=== PATIENT | female | born 1965 | race Caucasian/White ===

== ENCOUNTER 2018-06-12 21:32 | Inpatient (IN) | payer BC, OTHER ==
[~2018-06-12] VITALS: Ht 157.5 cm; Wt 80.9 kg
[~2018-06-12 21:32] MED LIST: DAILY VALUE1 EACH PO; ULTRAM50 MG PO
[2018-06-13] MEDS ORDERED: NEURONTIN300 MG PO (05:51)
[2018-06-13 06:05] VITALS: BP 109/72
[2018-06-13 14:22] VITALS: BP 119/87
[2018-06-13 20:18] VITALS: BP 121/69
[2018-06-13 23:11] VITALS: BP 116/67
[2018-06-14 04:17] VITALS: BP 115/70
[2018-06-14 07:55] VITALS: BP 122/75
[2018-06-14 12:11] VITALS: BP 130/75
[2018-06-14] MEDS ORDERED: CYCLOBENZAPRINE10 MG PO (12:11)
[2018-06-14] MEDS ORDERED: HYDROCODON-ACE1 EAC7 PO (12:11)
[2018-06-14 15:27] VITALS: BP 108/72
[2018-06-14 23:29] VITALS: BP 129/79
[2018-06-15 08:14] VITALS: BP 110/73
[2018-06-15 15:41] VITALS: BP 117/78
[2018-06-15 16:32] VITALS: BP 117/78
== END 2018-06-15 17:24 | disposition home or self-care (01) | DRG 460 ==
LOC: ENRESERV 21:32 → 3EAST 06-13 05:12 → 2SOUTH 06-13 05:12 → ENRESERV 06-13 09:55 → 2SOUTH 06-13 10:14 → 3EAST 06-13 14:02
PROC: 0SG30A0 Fusion of Lumbosacral Joint with Interbody Fusion Device, Anterior Approach, Anterior Column, Open Approach (ICD-10-PCS; principal; 2018-06-13)
DX: M54.16 Radiculopathy, lumbar region (principal); M99.03 Segmental and somatic dysfunction of lumbar region; G89.29 Other chronic pain; Z90.710 Acquired absence of both cervix and uterus; Z87.891 Personal history of nicotine dependence
CPT/HCPCS: 72100; 76000; 86850; 86900; 86901; C1713; J0131; J0330; J0690; J1100; J1170; J2250; J2270; J2405; J3010; J3480